=== PATIENT | male | born 2000 | race Hispanic/Latino ===

== ENCOUNTER 2021-09-15 00:58 | Emergency (ER) | payer BC ==
[2021-09-15] MEDS ORDERED: Ondansetron PF 4 MG/2 ML Vial ONE (01:18)
[2021-09-15] MEDS ORDERED: Fentanyl 100 MCG/2 ML VIAL ONE (01:18)
[2021-09-15 01:58] LABS: Bilirubin Neg (Negative); Blood, Urine Negative (Negative); Clarity Slightly Cloudy (Clear); Glucose, Urine (Dipstick) Normal (Negative); Ketone, Urine 5 mg/dL (Negative); Leukocyte Negative (Negative); Nitrite Negative (Negative); Protein, Urine (Dipstick) 30 mg/dl (Neg-Trace); Specific Gravity, Urine 1.025 (1.002-1.036); Urobilinogen Normal mg/dL (Less than 2)
[2021-09-15 02:08] LABS: Bacteria/HPF 1+ HPF (None Seen); Mucous/LPF 3+ LPF (<2+); RBC/HPF None Seen HPF (0-3); Sperm/HPF Rare HPF (None Seen); Squamous Epithelial 0-3 HPF (0-3); WBC/HPF 0-3 HPF (0-3)
[2021-09-15 18:22] LABS: Chlam.trachomatis by PCR,Urine Not Detected (NotDetected)
== END 2021-09-15 03:14 | disposition home or self-care (01) ==
LOC: CSHERS 00:58
DX: N43.3 Hydrocele, unspecified (principal)
CPT/HCPCS: 76870; 81003; 81015; 87491; 87591; 93976; 96374; 96375; J2405; J3010